=== PATIENT | male | born 1995 | race Asian ===

== ENCOUNTER 2016-02-27 05:55 | Emergency (ER) | payer OTHER ==
--- NOTE | 2016-02-27 06:03 | EDPHY ---
H & P HPI/ROS: HPI CHIEF COMPLAINT: Sore throat, sinus congestion, ear pain, fatigue HISTORY OF PRESENT ILLNESS: This patient very pleasant otherwise healthy 20 year old male he is [employer] student, denies any significant medical or surgical history he presents to the emergency room with 24-48 hours of sore throat, left ear pain, anterior maxillary sinus congestion and pressure. Also complains of fatigue. He denies muscle aches or joint pain, denies high fever, denies nausea vomiting or diarrhea. Past Medical History: No significant medical history Past Surgical History: Appendectomy, left knee surgery Social History: Denies use of drugs alcohol tobacco products he is a [employer] student Family History: Noncontributory ROS REVIEW OF SYSTEMS: A comprehensive 10 point review of systems is otherwise negative aside from elements mentioned in the history of present illness. Exam Constitutional triage nursing summary reviewed, vital signs reviewed, awake/ alert. Eyes normal conjunctivae and sclera, EOMI, PERRLA. HENT right TM is normal, left TM is erythematous and bulging, he does have tender palpation maxillary sinuses bilaterally also has a posterior pharynx that is erythematous no exudate uvula midline no significant swelling, atraumatic, moist mucus membranes, no epistaxis, neck supple/ no meningismus, no raccoon eyes. Respiratory clear to auscultation bilaterally, normal breath sounds, no respiratory distress, no wheezing. Cardiovascular rate normal, regular rhythm, no murmur, no edema, distal pulses normal. Gastrointestinal soft, non-tender, no rebound, no guarding, normal bowel sounds, no distension, no pulsatile mass. Genitourinary no CVA tenderness. Musculoskeletal no midline vertebral tenderness, full range of motion, no calf swelling, no tenderness of extremities, no meningismus, good pulses, neurovascularly intact. Skin pink, warm, & dry, no rash, skin atraumatic. Neurologic awake, alert and oriented x 3, AAOx3, moves all 4 extremities equally, motor intact, sensory intact, CN II-XII intact, normal cerebellar, normal vision, normal speech. Psychiatric normal mood/affect. Heme/Lymph/Immune no lymphadenopathy. Differential Diagnosis: includes but is not limited to in a particular order, upper respiratory tract infection, sinusitis, left otitis media, viral syndrome Medical Decision Making: We will perform a rapid strep test. The patient does have acute otitis media on the left side to be given ibuprofen here for pain control azithromycin for antibiotic. I will allow him to go home on ibuprofen for pain control and Z-Parrish. Re-evaluation: 0644; rapid strep pending at this time this patient appears well nontoxic no acute distress no meningeal signs no severe headache. Does have maxillary sinus pain and left otitis media on exam. Posterior pharynx erythematous. Patient be given a prescription for azithromycin and ibuprofen he does understand return emergency room if develops high fever, vomiting severe headache neck stiffness or questions or concerns. This time he has no evidence of meningitis. Specifically no stiff neck, no neck pain, no headachw, has anterior maxillary pain Source: Patient - Personal History Tetanus Vaccine Date: 2011 - Medical/Surgical History Hx Asthma: No Hx Chronic Respiratory Disease: No Hx Diabetes: No Hx Cardiac Disease: No Hx Renal Disease: No Hx Cirrhosis: No Hx Alcoholism: No Hx HIV/AIDS: No Hx Splenectomy or Spleen Trauma: No Other PMH: L knee sx, appy - Social History Smoking Status: Never smoked Constitutional: Initial Vital Signs Temperature (C) 37.2 C 02/27/16 06:01 Heart Rate 98 02/27/16 06:01 Respiratory Rate 18 02/27/16 06:01 Blood Pressure 138/88 H 02/27/16 06:01 O2 Sat (%) 96 02/27/16 06:01 O2 Delivery Mode Room Air Allergies/Adverse Reactions: No Known Allergies Allergy (Verified 02/27/16 06:01) Home Medications: Medication Instructions Recorded AZITHROMYCIN [Z-PACK] 250 mg PO DAILY #6 tab 02/27/16 Ibuprofen [Motrin (*)] 800 mg PO Q6-8PRN #10 tab 02/27/16 Medical Decision Making - Data Points Laboratory Results: 02/27/16 06:30 Group A Strep Screen Pending Medications Given: Discontinued Medications Azithromycin (Zithromax) 500 mg PO EDNOW ONE PRN Reason: Protocol Stop: 02/27/16 06:34 Last Admin: 02/27/16 06:36 Dose: 500 mg Ibuprofen (Motrin) 800 mg PO EDNOW ONE Stop: 02/27/16 06:31 Last Admin: 02/27/16 06:36 Dose: 800 mg Departure - Departure Disposition: Home, Routine, Self-Care Clinical Impression: Sinusitis Qualifiers: Sinusitis location: maxillary Chronicity: acute Recurrence: non-recurrent Qualifier Code: (J01.00) Acute maxillary sinusitis, unspecified Condition: Good Instructions: Sinusitis (ED) Additional Instructions: 1. Please stay well-hydrated drink lots of fluids. 2. return to the emergency room if develops worsening symptoms questions or concerns includes high fever, vomiting, severe headache 3. Take antibiotic as prescribed 4. Take ibuprofen for pain control. Take this with food non empty stomach. Referrals: NONE *PRIMARY CARE P,. [Primary Care Provider] - As per Instructions Prescriptions: Ibuprofen [Motrin (*)] 800 mg PO Q6-8PRN #10 tab AZITHROMYCIN [Z-PACK] 250 mg PO DAILY #6 tab
[2016-02-27 06:05] VITALS: BP 138/88; PULSE 98; RESP 18; TEMP 99; O2SAT 96
[2016-02-27] MEDS ORDERED: IBUPROFEN 200 MG TAB PO ONE (06:30)
[2016-02-27] MEDS ORDERED: AZITHROMYCIN IV 500 MG in D5W 250 ML IV ONE (06:30)
[2016-02-27] MEDS ORDERED: AZITHROMYCIN 250 MG TAB PO ONE ×2 (06:33→06:34)
== END 2016-02-27 06:54 | disposition home or self-care (01) ==
DX: J01.00 Acute maxillary sinusitis, unspecified (principal)
CPT/HCPCS: J0456